=== PATIENT | male | born 1990 | race Hispanic/Latino ===

== ENCOUNTER 2018-06-04 16:20 | Emergency (ER) | payer MEDICAID ==
[2018-06-04 16:32] VITALS: O2SAT 100
[2018-06-04] MEDS ORDERED: Sodium Chloride 0.9% 1,000 ML IV STA (17:15)
[2018-06-04] MEDS ORDERED: Pantoprazole 40 MG in Sodium Chloride 0.9% 100 ML IVPB SCH (17:30)
--- NOTE | 2018-06-04 17:36 | ED PDOC ---
HPI: Abdomen Time Seen by Provider: 06/04/18 16:56 Chief Complaint (Nursing): Abdominal Pain History Per: Patient Additional Complaint(s): Pt. states today he woke up with crampy subrapubic pain associated with nausea and 2 episodes of non-bloody vomiting which progressed into 2 episodes of dark red vomiting. Pain has improved along with nausea. Vomiting has resolved. States he's had this pain intermittently over the past 2 years and has been evaluated for it in the past but reports nausea and vomiting has never been this bad. Last BM was yesterday and was normal. Denies hx of GI bleed, NSAID use, dysuria, hematuria, hx of anemia, previous abdominal surgeries, back pain, melena, hematochezia, BRBPR, fever, diarrhea, constipation. Past Medical History Reviewed: Historical Data, Nursing Documentation, Vital Signs Vital Signs: Last Vital Signs Temp 98.8 F 06/04/18 16:29 Pulse 82 06/04/18 16:29 Resp 18 06/04/18 16:29 BP 114/69 06/04/18 16:29 Pulse Ox 100 06/04/18 17:39 - Surgical History Surgical History: No Surg Hx - Family History Family History: States: No Known Family Hx - Social History Alcohol: Occasional Drugs: Cannabis (once every 2 weeks) - Home Medications Home Medications: Ambulatory Orders Medication Instructions Recorded Famotidine [Pepcid] 40 mg PO DAILY PRN #10 tab 06/04/18 Ondansetron ODT [Zofran ODT] 4 mg PO TID #10 odt 06/04/18 - Allergies Allergies/Adverse Reactions: Allergies Allergy/AdvReac Type Severity Reaction Status Date / Time Penicillins Allergy RASH Verified 06/04/18 16:29 Review of Systems ROS Statement: Except As Marked, All Systems Reviewed And Found Negative Gastrointestinal: Positive for: Vomiting, Abdominal Pain, Hematemesis Physical Exam - Physical Exam Appears: Positive for: Well, Non-toxic, No Acute Distress Skin: Positive for: Normal Color, Warm. Negative for: Rash Eye Exam: Positive for: Normal appearance, EOMI, PERRL. Negative for: Scleral icterus Cardiovascular/Chest: Positive for: Regular Rate, Rhythm Respiratory: Positive for: Normal Breath Sounds. Negative for: Respiratory Distress Gastrointestinal/Abdominal: Positive for: Normal Exam, Bowel Sounds, Soft. Negative for: Tenderness (to deep palpation) Back: Positive for: Normal Inspection. Negative for: L CVA Tenderness, R CVA Tenderness Rectal: Positive for: Normal Exam, Other (Vandana SOLOMON present during entire rectal exam.). Negative for: Black Stool, Blood Streaked Stool, Hemorrhoids, Tenderness Neurologic/Psych: Positive for: Alert, Oriented (x3). Negative for: Aphasia, Facial Droop - Laboratory Results Result Diagrams: 06/04/18 17:44 06/04/18 17:44 - ECG O2 Sat by Pulse Oximetry: 100 - Progress ED Course And Treament: Labs, IV NS bolus, zofran 4mg IV, protonix 80mg IV then 8mg/hr drip ordered. Pt. kept NPO. Re-evaluation Time: 19:28 (Reports complete relief abdominal pain and nausea.) Condition: Re-examined, Improved Disposition - Clinical Impression Clinical Impression: Abdominal pain, Dyspepsia - Patient ED Disposition Is Patient to be Admitted: No - Disposition Referrals: [facility] [Outside] Disposition: Routine/Home Disposition Time: 19:30 Condition: IMPROVED Additional Instructions: JAMAAL ABERNATHY, thank you for letting us take care of you today. Your provider was Jose Edward MD and you were treated for ABD PAIN,VOMITING. The emergency medical care you received today was directed at your acute symptoms. If you were prescribed any medication, please fill it and take as directed. It may take several days for your symptoms to resolve. Return to the Emergency Department if your symptoms worsen, do not improve, or if you have any other problems. Please contact your doctor or call one of the physicians/clinics you have been referred to that are listed on the Patient Visit Information form that is included in your discharge packet. Bring any paperwork you were given at discharge with you along with any medications you are taking to your follow up visit. Our treatment cannot replace ongoing medical care by a primary care provider outside of the emergency department. Thank you for allowing the [facility] team to be part of your care today. If you had an X-Ray or CT scan: A Radiologist will review the ED reading if any change in treatment is needed we will contact you. If you had a blood, urine, or wound culture: It will take several days for the results, if any change in treatment is needed we will contact you. If you had an STI test: It will take 48 hours for the results. Please call after 1 week if you have not heard back. Prescriptions: Famotidine [Pepcid] 40 mg PO DAILY PRN #10 tab PRN Reason: abdominal pain Ondansetron ODT [Zofran ODT] 4 mg PO TID #10 odt Instructions: Stomach Ache and Stomach Upset, Nausea and Vomiting, Adult (DC) Forms: [employer] ([place]estinian) Print Language: MALDIVIAN
[2018-06-04 18:00] LABS: BASO % 0.4 % (0.0-2.0); EOS # 0.2 K/uL (0.0-0.7); EOS % 2.3 % (0.0-4.0); HEMOGLOBIN 14.8 g/dL (12.0-18.0); LYMPH # 1.8 K/uL (1.0-4.3); LYMPH % 22.1 % (20.0-40.0); MEAN CELL VOLUME 84.1 fl (80.0-94.0); MEAN CORPUSCULAR HEMOGLOBIN 28.1 pg (27.0-31.0); MEAN CORPUSCULAR HGB CONC 33.4 g/dL (33.0-37.0); MEAN PLATELET VOLUME 7.9 fl (7.2-11.7); MONO % 12.5 % (0.0-10.0); NEUT # 5.1 K/uL (1.8-7.0); NEUT % 62.7 % (50.0-75.0); NRBC % 0.1 % (0.0-0.0); RBC 5.27 Mil/uL (4.40-5.90); WHITE BLOOD COUNT 8.1 K/uL (4.8-10.8)
[2018-06-04 18:04] LABS: PROTHROMBIN TIME 11.2 Seconds (9.8-13.1)
[2018-06-04 18:07] LABS: PARTIAL THROMBOPLASTIN TIME 34.1 Seconds (25.6-37.1)
[2018-06-04 18:12] LABS: ALB/GLOB RATIO 1.4 (1.0-2.1); ALBUMIN 4.6 g/dL (3.5-5.0); ALT/SGPT 26 U/L (21-72); AST/SGOT 28 U/L (17-59); BLOOD UREA NITROGEN 14 mg/dl (9-20); GFR NON-AFRICAN AMERICAN > 60; LIPASE 19 U/L (23-300)
[2018-06-04 18:35] LABS: BARBITURATES, UR NEGATIVE (NEGATIVE); BENZODIAZEPINES, UR NEGATIVE (NEGATIVE); OPIATES, UR NEGATIVE (NEGATIVE); PHENCYCLIDINE, UR NEGATIVE (NEGATIVE)
[2018-06-04 18:59] LABS: URINE AMORPHOUS SEDIMENT RARE /ul (<OCC); URINE BACTERIA RARE (<OCC); URINE BILIRUBIN NEGATIVE (NEGATIVE); URINE BLOOD NEGATIVE (NEGATIVE); URINE CLARITY CLOUDY (Clear); URINE COLOR YELLOW (YELLOW); URINE GLUCOSE (UA) NEG (Normal); URINE LEUKOCYTE ESTERASE NEG Leu/uL (Negative); URINE PROTEIN 30 mg/dL (NEGATIVE); URINE UROBILINOGEN 0.2-1.0 mg/dL (0.2-1.0)
[2018-06-04 20:00] VITALS: BP 100/52; PULSE 71; RESP 15; TEMP 98.1
== END 2018-06-04 19:59 | disposition home or self-care (01) ==
LOC: H.ER 16:20
DX: R10.13 Epigastric pain (principal)
CPT/HCPCS: 80053; 81003; 83690; 85025; 85610; 85730; 86850; 86900; 96374; 96375; 99285; C9113; G0328; G0480; J2405; J7030